=== PATIENT | male | born 1960 | race Two or more races ===

== ENCOUNTER 2022-09-05 23:16 | Emergency (ER) | payer BC ==
[~2022-09-05] VITALS: Ht 188 cm; Wt 113.4 kg
--- NOTE | 2022-09-05 23:30 | NUR ---
Patient's son at bedside
--- NOTE | 2022-09-06 00:20 | NUR ---
Dr Bean at bedside MSE in progress
[2022-09-06] MEDS ORDERED: ONDANSETRON ODT 4 MG TAB.RAPDIS ONE (00:28)
[2022-09-06] MEDS ORDERED: OXYCODONE/APAP 5-325 MG TABLET ONE (00:29)
[2022-09-06] MEDS ORDERED: OXYCODONE/APAP 5-325 MG TABLET PO ONE (00:30)
[2022-09-06] MEDS ORDERED: ONDANSETRON ODT 4 MG TAB.RAPDIS SL ONE (00:30)
[2022-09-06] MEDS ORDERED: HYDR-4209 PO (02:38)
[2022-09-06] MEDS ORDERED: ONDA4TAB5 PO (02:38)
[2022-09-06] MEDS ORDERED: METOCLOPRAMIDE HCL 10 MG/2 ML VIAL IM ONE (02:45)
[2022-09-06] MEDS ORDERED: diphenhydrAMINE 50 MG/1 ML VIAL IM ONE (02:45)
[2022-09-06] MEDS ORDERED: diphenhydrAMINE 50 MG/1 ML VIAL ONE (02:52)
[2022-09-06] MEDS ORDERED: METOCLOPRAMIDE HCL 10 MG/2 ML VIAL ONE (02:52)
--- NOTE | 2022-09-06 03:00 | NUR ---
Patient discharged to home in stable condition. Written and verbal after care instructions given. Patient verbalizes understanding of instructions. Stressed follow up or return to ER for worsening s/s. Patient is a/ox4, NAD noted. Patient is able to walk with steady gait. Patient is accompanied by his son
[2022-09-06 03:13] VITALS: BP 130/72
== END 2022-09-06 03:00 | disposition home or self-care (01) ==
LOC: ER 23:27
DX: S39.012A Strain of muscle, fascia and tendon of lower back, initial encounter (principal); S13.9XXA Sprain of joints and ligaments of unspecified parts of neck, initial encounter; V49.40XA Driver injured in collision with unspecified motor vehicles in traffic accident, initial encounter; Y92.410 Unspecified street and highway as the place of occurrence of the external cause; E11.9 Type 2 diabetes mellitus without complications; R03.0 Elevated blood-pressure reading, without diagnosis of hypertension
CPT/HCPCS: 99284; 70450; 72125; 72131; 74176; 96372 ×2; J1200; J2765; A4663; Q0162